=== PATIENT | female | born 1995 | race Caucasian/White ===

== ENCOUNTER 2021-01-23 16:59 | Emergency (ER) | payer OTHER ==
[~2021-01-23] VITALS: Ht 162.6 cm; Wt 65.9 kg
[2021-01-23 17:44] VITALS: TEMP 99.3
[2021-01-23] MEDS ORDERED: WELLBUTRIN SR150 M1 PO (18:12)
[2021-01-23 18:36] LABS: COLLECTION METHOD CLEAN CATCH
[2021-01-23 18:52] LABS: AMORPHOUS CRYSTAL Present /uL; PH 7 (5-8); SQUAMOUS EPITHELIAL 0-2 /hpf; URINE APPEARANCE Hazy; URINE BACTERIA None Seen /hpf; URINE BILIRUBIN Negative (NEGATIVE); URINE BLOOD Negative (NEGATIVE); URINE COLOR Yellow; URINE GLUCOSE Negative (NEGATIVE); URINE KETONE Negative (NEGATIVE); URINE LEUKOCYTE ESTERASE Negative (NEGATIVE); URINE NITRATE Negative (NEGATIVE); URINE PROTEIN(semi-quant) Negative (NEGATIVE); URINE RBC 0-2 /hpf; URINE UROBILINOGEN Negative (NEGATIVE)
[2021-01-23 19:11] VITALS: BP 122/70; PULSE 87
== END 2021-01-23 19:13 | disposition home or self-care (01) ==
LOC: COL.ER 16:59
PROVIDERS: Personal Emergency Response Attendant
DX: O26.891 Other specified pregnancy related conditions, first trimester (principal); R10.2 Pelvic and perineal pain; O99.341 Other mental disorders complicating pregnancy, first trimester; F32.A Depression, unspecified; Z3A.10 10 weeks gestation of pregnancy; Z79.899 Other long term (current) drug therapy

== ENCOUNTER 2021-08-10 16:44 | Outpatient (CLI) | payer OTHER ==
[~2021-08-10] VITALS: Ht 165.1 cm; Wt 79.1 kg
[~2021-08-10 16:44] MED LIST: WELLBUTRIN SR150 M1 PO
[2021-08-10 17:00] VITALS: BP 144/77; PULSE 81; TEMP 97.4
--- NOTE | 2021-08-10 17:07 | NUR ---
1700 PATIENT HERE FROM OFFICE FOR BLOOD PRESSURE CHECKS. BP 144/77. EFM ON FHT 130 BABY VERY ACTIVE. ACCELERATIONS NOTED. SAO2 98%. PATIENT COMPLAINS OF SLIGHT HEADACHE. NO SOB, ABD PAIN,OR SWELLING NOTED. A NOBLE RN AT BEDSIDE FOR FURTHER ASSESSMENT.
[2021-08-10] MEDS ORDERED: PRENATAL (17:15)
[2021-08-10] MEDS ORDERED: MAGNESIUM250 M1 PO (17:16)
--- NOTE | 2021-08-10 17:34 | NUR ---
1730 UP TO BRAnton LOPEZ AND SENT TO LAB.
[2021-08-10 17:35] LABS: COLLECTION METHOD CLEAN CATCH
[2021-08-10 17:40] LABS: HEMOGLOBIN 12.6 g/dl (12.5-16.0); MEAN CELL VOLUME 88 fl (80.0-100.0); MEAN CORPUSCULAR HEMOGLOBIN 31 pg (27-31); MEAN CORPUSCULAR HGB CONC 35 g/dl (33.0-37.0); MEAN PLATELET VOLUME 10.6 fl (7.4-10.4); PLATELET COUNT 239 K/mm3 (130-400); REDCELL DISTRIBUTION WIDTH-CV 13.1 % (11.5-14.5)
[2021-08-10 17:41] LABS: MUCOUS Present (NOT PRESENT); PH 6 (5-8); URINE APPEARANCE Hazy (CLEAR/HAZY); URINE BACTERIA Rare /hpf (NONE SEEN); URINE BILIRUBIN Negative (NEGATIVE); URINE BLOOD Negative (NEGATIVE); URINE COLOR Yellow (YELLOW); URINE GLUCOSE Negative (NEGATIVE); URINE KETONE Negative (NEGATIVE); URINE LEUKOCYTE ESTERASE 1+ (NEGATIVE); URINE NITRATE Negative (NEGATIVE); URINE PROTEIN(semi-quant) 1+ (NEGATIVE); URINE RBC 0-2 /hpf (0-2); URINE UROBILINOGEN Negative (NEGATIVE)
[2021-08-10 17:59] LABS: ALBUMIN 2.9 gm/dL (3.5-5.0); BILIRUBIN,TOTAL 0.2 mg/dL (0.2-1.2); CALCIUM 9.3 mg/dL (8.4-10.2); CREATININE, serum 0.71 mg/dL (0.57-1.11); POTASSIUM 4.2 mmol/L (3.5-4.5); TOTAL PROTEIN 6.5 gm/dL (6.2-8.1)
[2021-08-10 18:00] VITALS: BP 133/76; PULSE 75
[2021-08-10 18:35] VITALS: BP 138/79; PULSE 83
--- NOTE | 2021-08-10 18:35 | NUR ---
MONITORING DC'D, PT MAY DC HOME PER DR. BURCIAGA. SCHEDULED TO FOLLOW UP WITH DR. MARQUEZ ON MONDAY PRIOR TO MOVING TO [place] ON MONDAY. PT CHANGING INTO OWN CLOTHES WHILE DISCHARGE PAPERWORK PREPARED.
== END 2021-08-10 18:43 | disposition home or self-care (01) ==
LOC: LDRO 16:44
PROVIDERS: Obstetrics & Gynecology
DX: O16.9 Unspecified maternal hypertension, unspecified trimester (principal); Z3A.00 Weeks of gestation of pregnancy not specified

== ENCOUNTER 2021-08-12 10:17 | Outpatient (CLI) | payer OTHER ==
[~2021-08-12] VITALS: Ht 165.1 cm; Wt 78.6 kg
[~2021-08-12 10:17] MED LIST changes: +MAGNESIUM250 M1 PO; +PRENATAL
--- NOTE | 2021-08-12 10:30 | NUR ---
pt ambulatory onto unit with mother. FHR monitor/TOCO applied. Vital signs WNL. Pt denies vaginal bleeding, decreased movement, leaking of fluid, or regular contractions. Pt oriented to room. Plan of care discussed. Pt verbalizes understanding. Call light within reach.
[2021-08-12 10:45] VITALS: BP 128/73; PULSE 98
[2021-08-12 10:55] LABS: COLLECTION METHOD CLEAN CATCH
[2021-08-12 10:58] LABS: BASO % 0.4 % (0.0-2.0); EOS % 0.5 % (0.0-4.0); GRAN # 5.5 K/mm3 (1.4-6.5); GRAN % 69.5 % (42.2-75.2); HEMOGLOBIN 12.2 g/dl (12.5-16.0); LYMPH # 1.8 K/mm3 (1.2-3.4); LYMPH % 22.7 % (20.0-51.0); MEAN CELL VOLUME 88 fl (80.0-100.0); MEAN CORPUSCULAR HEMOGLOBIN 31 pg (27-31); MEAN CORPUSCULAR HGB CONC 35 g/dl (33.0-37.0); MEAN PLATELET VOLUME 10.6 fl (7.4-10.4); MONO # 0.5 K/mm3 (0.1-0.6); MONO % 6.5 % (1.7-9.3); PLATELET COUNT 241 K/mm3 (130-400); RED BLOOD COUNT 3.97 M/mm3 (4.10-5.30); REDCELL DISTRIBUTION WIDTH-CV 13.1 % (11.5-14.5)
[2021-08-12 10:59] LABS: HEMATOCRIT 34.8 % (37.0-47.0)
[2021-08-12 11:00] VITALS: BP 136/73; PULSE 92; TEMP 98.4
[2021-08-12 11:05] LABS: MUCOUS Present (NOT PRESENT); PH 6 (5-8); URINE APPEARANCE Cloudy (CLEAR/HAZY); URINE BACTERIA None Seen /hpf (NONE SEEN); URINE BILIRUBIN Negative (NEGATIVE); URINE BLOOD Negative (NEGATIVE); URINE COLOR Yellow (YELLOW); URINE GLUCOSE Negative (NEGATIVE); URINE KETONE Negative (NEGATIVE); URINE LEUKOCYTE ESTERASE 2+ (NEGATIVE); URINE NITRATE Negative (NEGATIVE); URINE PROTEIN(semi-quant) 1+ (NEGATIVE); URINE UROBILINOGEN Negative (NEGATIVE); URINE WBC 20-50 /hpf (0-2)
[2021-08-12 11:13] LABS: ALBUMIN 2.8 gm/dL (3.5-5.0); BILIRUBIN,TOTAL 0.3 mg/dL (0.2-1.2); CALCIUM 8.3 mg/dL (8.4-10.2); CREATININE, serum 0.74 mg/dL (0.57-1.11); POTASSIUM 3.7 mmol/L (3.5-4.5); TOTAL PROTEIN 6.2 gm/dL (6.2-8.1)
[2021-08-12 11:15] VITALS: BP 125/72; PULSE 92
[2021-08-12 11:31] VITALS: BP 120/72; PULSE 97
--- NOTE | 2021-08-12 11:50 | NUR ---
1131- Pt updated on POC, discharge home. Discussed hypertension and gave precautions. Labor precautions discussed. Questions answered. EFM and TOCO off. Pt up to change into street clothes. 1150- Discharge paperwork given and explained. Pt ambulates off unit in stable condition with her mother.
[2021-08-12] MEDS ORDERED: TYLENOL 500MG500 MG PO (16:18)
[2021-08-13] MEDS ORDERED: MOTRIN 800800 MG/TAB PO (21:55)
== END 2021-08-12 11:50 | disposition home or self-care (01) ==
LOC: LDRO 10:17
PROVIDERS: Obstetrics & Gynecology
DX: Z34.93 Encounter for supervision of normal pregnancy, unspecified, third trimester (principal); Z3A.38 38 weeks gestation of pregnancy

== ENCOUNTER 2021-08-12 15:53 | Inpatient (IN) | payer OTHER ==
[2021-08-12] VITALS (27 sets, daily range): BP systolic 120–152; BP diastolic 61–105; PULSE 77–112; TEMP 97.9
[~2021-08-12] VITALS: Ht 165.1 cm; Wt 78.6 kg
--- NOTE | 2021-08-12 16:00 | NUR ---
1600- Pt arrives on unit ambulatory with her mother. She was sent to LDR for induction of labor. Pt was seen this morning on LDR for blood pressure monitoring but was sent home. Pt states that being sent home she developed a headache behind her eyes and her blood pressure was elevated at home. 1607- Pt into bed. EFM and TOCO on and tracing. VSS. Assessment completed.
[2021-08-12] MEDS ORDERED: TYLENOL 500MG500 MG PO (16:18)
[2021-08-12 16:56] LABS: BASO % 0.3 % (0.0-2.0); EOS % 0.3 % (0.0-4.0); GRAN # 5.8 K/mm3 (1.4-6.5); GRAN % 66.5 % (42.2-75.2); HEMOGLOBIN 12.1 g/dl (12.5-16.0); LYMPH # 2.2 K/mm3 (1.2-3.4); LYMPH % 25.1 % (20.0-51.0); MEAN CELL VOLUME 88 fl (80.0-100.0); MEAN CORPUSCULAR HEMOGLOBIN 30 pg (27-31); MEAN CORPUSCULAR HGB CONC 34 g/dl (33.0-37.0); MEAN PLATELET VOLUME 10.8 fl (7.4-10.4); MONO # 0.6 K/mm3 (0.1-0.6); MONO % 7.2 % (1.7-9.3); PLATELET COUNT 248 K/mm3 (130-400); RED BLOOD COUNT 4.03 M/mm3 (4.10-5.30); REDCELL DISTRIBUTION WIDTH-CV 13.1 % (11.5-14.5)
[2021-08-12 16:58] LABS: HEMATOCRIT 35.3 % (37.0-47.0)
--- NOTE | 2021-08-12 19:05 | NUR ---
Roles at bedside reviewing plan of care withpatient. Pt up on birthing ball at this time. Spouse supportive at bedside.
--- NOTE | 2021-08-12 22:15 | NUR ---
Dr. Martinez at bedside. AROM at this time with moderate amount of clear fluid out. Reviewed plan of care and discussed pain management options. SVE /-2.
[2021-08-12 22:51] LABS: COLLECTION METHOD CLEAN CATCH
[2021-08-12 22:59] LABS: PH 7 (5-8); SQUAMOUS EPITHELIAL 0-2 /hpf (0-10); URINE APPEARANCE Clear (CLEAR/HAZY); URINE BACTERIA Rare /hpf (NONE SEEN); URINE BILIRUBIN Negative (NEGATIVE); URINE BLOOD 2+ (NEGATIVE); URINE COLOR Yellow (YELLOW); URINE GLUCOSE Negative (NEGATIVE); URINE KETONE Negative (NEGATIVE); URINE LEUKOCYTE ESTERASE Trace (NEGATIVE); URINE NITRATE Negative (NEGATIVE); URINE PROTEIN(semi-quant) Negative (NEGATIVE); URINE UROBILINOGEN Negative (NEGATIVE)
[2021-08-12 23:16] LABS: ALBUMIN 2.9 gm/dL (3.5-5.0); BILIRUBIN,TOTAL 0.2 mg/dL (0.2-1.2); CALCIUM 8.5 mg/dL (8.4-10.2); CREATININE, serum 0.7 mg/dL (0.57-1.11); POTASSIUM 3.9 mmol/L (3.5-4.5); TOTAL PROTEIN 6.3 gm/dL (6.2-8.1)
[2021-08-13] VITALS (34 sets, daily range): BP systolic 108–168; BP diastolic 59–96; PULSE 81–123; TEMP 97.5–98.3
--- NOTE | 2021-08-13 00:07 | NUR ---
0000 - Chelsi Lopez CRNA at bedside for epidural placement. Procedure, risks, and benefits reviewed with patient and spouse, verbalized understanding. Pt positioned to sitting on edge of bed. 0006 - Difficulty tracing FHR due to maternal positioning. 0007 - Single shot by MARIANA Hill. Pt denies any adverse reactions. 0011 - Pt positioned to wedge left. Safety precautions reviewed. Bed in low and locked position, call light within reach . See anesthesia record.
--- NOTE | 2021-08-13 00:45 | NUR ---
Medellin catheter placed at this time to dependent drainage. Clear yellow urine out. Secured to leg with statlock. SVE 5-6//-2.
--- NOTE | 2021-08-13 03:25 | NUR ---
Medellin catheter removed at this time without difficulties. 200 out.
--- NOTE | 2021-08-13 03:30 | NUR ---
0325 - SVE complete/+2. Patient educated on pushing techniques and positioned into footplates. 0330 - Initial push at this time. Moving baby well. 0400 - Intermittent late decelerations down to 100 bpm after pushes with spontaneous return to baseline. Pt continues to push well. 0430 - Intetmittent late decelerations down to 100 bpm after pushes with spontaneous return to baseline. This nurse remains at bedside. Pt continues to push well. 0500 - Intermittent late decelerations down to 120 bpm after pushes with spontaneous return to baseline. Dr. Condon called for delivery, see physician notification. 0515 - Dr. Condon gowned and gloved at perineum. Nursery nurse Zoey Bucio at bedside. 0531 - Spontaneous delivery of viable boy. Cord clamped x [address] Condon at perineum and cut by FOB. Infant then placed to mothers chest, care of infant assumed to CIERRA Stout. Cord blood obtained. Pitocin off. 0535 - Spontaneous delivery of intact placenta. Fundal massage by Dr. Condon. Fundus firm and down 3 from umbilicus. Pitocin started at 333 mL/hr per protocol. 2nd degree laceration repaired by Dr. Condon. Straight catheter by Dr. Condon with 100 mL out. Epidural off. EBL 300. 0545 - New chux beneath patient. Ice pack to perineum. Pt positioned in bed for comfort. recovery started. See physician delivery note.
--- NOTE | 2021-08-13 08:15 | NUR ---
0815-Ambulatory with steady gait to bathroom, unable to void at this time. Lochia WNL. Lianet care assisted, ambulatory to room 216 Updated on plan of care and safety.
[2021-08-13] MEDS ORDERED: MOTRIN 800800 MG/TAB PO (21:55)
[2021-08-14 01:24] VITALS: BP 126/67; PULSE 95
[2021-08-14 05:10] VITALS: BP 120/72; PULSE 86; TEMP 97.7
[2021-08-14 08:34] VITALS: BP 120/70; PULSE 79; TEMP 97.6
== END 2021-08-14 13:30 | disposition home or self-care (01) | DRG 807 ==
LOC: LDR 15:53 → OB 15:53
PROVIDERS: Student in an Organized Health Care Education/Training Program; ADMIT Obstetrics & Gynecology
PROC: 10E0XZZ Delivery of Products of Conception, External Approach (ICD-10-PCS; principal; 2021-08-13)
PROC: 0KQM0ZZ Repair Perineum Muscle, Open Approach (ICD-10-PCS; 2021-08-13)
PROC: 10907ZC Drainage of Amniotic Fluid, Therapeutic from Products of Conception, Via Natural or Artificial Opening (ICD-10-PCS; 2021-08-13)
PROC: 3E033VJ Introduction of Other Hormone into Peripheral Vein, Percutaneous Approach (ICD-10-PCS; 2021-08-13)
DX: O13.4 Gestational [pregnancy-induced] hypertension without significant proteinuria, complicating childbirth (principal); Z37.0 Single live birth; O99.344 Other mental disorders complicating childbirth; F41.9 Anxiety disorder, unspecified; O70.1 Second degree perineal laceration during delivery; Z3A.38 38 weeks gestation of pregnancy
CPT/HCPCS: J0595; J2590; J7120